=== PATIENT | female | born 1940 | race Caucasian/White ===

== ENCOUNTER → 2020-06-19 | Outpatient (CLI) | payer MEDICARE, OTHER ==
[2020-06-19 15:30] LABS: HCT 45.8 % (34.0-46.0); HGB 14.5 gm/dL (11.4-16.0); Hypochromasia Slight; MCH 30.1 pg (25.0-35.0); MCHC 31.7 g/dL (31.0-37.0); MCV 94.8 fL (80.0-100.0); Mean Platelet Volume 7.8; Platelet Count 295 k/uL (150-450); RBC 4.83 m/uL (3.80-5.40); RDW 13.4 % (11.5-15.5); WBC 7.5 k/uL (3.8-10.6)
[2020-06-19 15:39] LABS: Albumin 4.1 g/dL (3.5-5.0); Calcium 9.6 mg/dL (8.4-10.2); Total Bilirubin 0.5 mg/dL (0.2-1.3); Total Protein 6.8 g/dL (6.3-8.2)
[2020-06-19 15:44] LABS: Partial Thromboplastin Time 27.1 sec (22.0-30.0); Prothrombin Time 10.6 sec (9.0-12.0)
== END | disposition home or self-care (01) ==
LOC: LABPAT 13:35
PROVIDERS: ATTEND Orthopaedic Surgery
DX: Z01.818 Encounter for other preprocedural examination (principal); Z01.812 Encounter for preprocedural laboratory examination
CPT/HCPCS: 80053; 85027; 85610; 85730; 86850; 86900; 86901; 87070; 93005

== ENCOUNTER 2020-06-26 05:41 | Day surgery (SDC) | payer MEDICARE, OTHER ==
[2020-06-24 14:41] VITALS: BMI 36.8
[~2020-06-26 05:41] MED LIST: ACETAMINOPHEN TAB 500 MG TAB PO ONE; GABAPENTIN 300 MG CAP PO ONE; MELOXICAM 7.5 MG TAB PO ONE; TRANEXAMIC ACID 1,000 MG in SODIUM CHLORIDE 0.9% 100 ML IVPB ONE
[2020-06-26] MEDS ORDERED: ONDANSETRON 4 MG/2 ML VIAL ONE (05:48)
[2020-06-26] MEDS ORDERED: LIDOCAINE 1% (10MG/ML) FOR IV START INTRADERMA ONE (06:14)
[2020-06-26] MEDS: LACTATED RINGERS 1,000 ML IV SCH (06:15)
[2020-06-26] MEDS ORDERED: DEXAMETHASONE SOD PHOSPHATE 4 MG/ML 1 ML VIAL IV ONE (06:16)
[2020-06-26] MEDS ORDERED: LIDOCAINE 1% INJ 10MG/ML (20 ML MDV) ONE (06:52)
[2020-06-26] MEDS ORDERED: SODIUM CHLORIDE 0.9% IRRIG 1,000 ML BTL IRRIGATION ONE (06:52)
[2020-06-26] MEDS ORDERED: MIDAZOLAM 2 MG/2 ML VIAL ONE (06:52)
[2020-06-26] MEDS ORDERED: HEPARIN SODIUM,PORCINE 10,000 UNIT/ML 1 ML VIAL ONE (06:52)
[2020-06-26] MEDS ORDERED: PROPOFOL 10 MG/ML 20 ML VIAL IV ONE (06:52)
[2020-06-26] MEDS ORDERED: TRANEXAMIC ACID 1,000 MG/10 ML VIAL ONE (06:52)
[2020-06-26] MEDS ORDERED: PHENYLEPHRINE-0.9% NACL SYG 1 MG/10 ML SYRINGE ONE (06:52)
[2020-06-26] MEDS ORDERED: SODIUM CHLORIDE 0.9% 100 ML BAG ONE (06:52)
[2020-06-26] MEDS ORDERED: ceFAZolin 3,000 MG in SODIUM CHLORIDE 0.9% IRRIGATIO 3,000 ML IRRIGATION ONE (06:57)
[2020-06-26] MEDS ORDERED: MAGNESIUM HYDROXIDE 2,400 MG/10 ML CUP PO PRN (07:04)
[2020-06-26] MEDS ORDERED: HYDROcodone/APAP 5-325MG 1 EACH TAB PO PRN ×2 (07:04)
[2020-06-26] MEDS ORDERED: NALOXONE 0.4 MG/ML 1 ML VIAL IV PRN (07:04)
[2020-06-26] MEDS ORDERED: HYDROmorphone 0.5 MG/0.5 ML SYRINGE IVP PRN ×3 (07:04)
[2020-06-26] MEDS ORDERED: ONDANSETRON 4 MG/2 ML VIAL IVP PRN (07:04)
[2020-06-26] MEDS: ROPIVACAINE 246.25 MG, EPINEPHrine 0.5 MG, KETOROLAC 30 MG, cloNIDine HCL/PF 80 MCG, WA... MISCELLANE ONE ×10 (07:31→08:01)
[2020-06-26] MEDS ORDERED: LACTATED RINGERS 1,000 ML IV ONE ×2 (07:58→10:03)
--- NOTE | 2020-06-26 08:32 | P.OP ---
Date of Procedure: 06/26/20 Preoperative Diagnosis: Severe osteoarthritis left hip Postoperative Diagnosis: Severe osteoarthritis left hip Procedure(s) Performed: Left total hip arthroplasty with a direct anterior approach Implants: Doyle and nephew Polarstem size 2 standard Doyle & Nephew R3, 3 hole acetabular shell, 48 mm Doyle [employer] Nephew reflection 6.5 mm cancellus screw, 20 mm 2 Doyle [employer] Nephew R3, XLPE 20 acetabular liner Doyle [employer] Nephew Oxinium femoral head 32 m, -3 All components were press-fit. The articulation is Oxinium on polyethylene. Anesthesia: spinal Surgeon: Fredy De La O Food Beverage Supervisor #1: Natasha Saldaña Estimated Blood Loss (ml): 150 (69 mL returned with Cell Saver) Pathology: other (Femoral head) Condition: stable Disposition: PACU Indications for Procedure: After failure of conservative treatment we discussed the surgical and nonsurgical treatment options at length. Patient wishes to proceed with a total hip arthroplasty with a direct anterior approach. Complications specific to this procedure were discussed at length, including but not limited to infection, leg length discrepancy, dislocation, and nerve injury. Covid-19 was also discussed at length with the patient, and they are aware of the current policies and procedures. The patient was given the option of delaying surgery, but they elect to proceed knowing these risks. Patient is aware of all these complications and informed consent was obtained Operative Findings: The operative findings are consistent with severe osteoarthritis of the left hip Description of Procedure: Patient was seen and evaluated in the preoperative area, consent was reviewed, and the surgical site was marked with a skin marker. Patient was then brought to the operating room and given prophylactic antibiotics intravenously. 1 g of Tranexamic acid was also given. A spinal anesthetic was administered by the anesthesia department. The patient was then placed on the [place] table with the bony prominences well-padded. The hip area was then prepped and draped in usual sterile fashion. A universal timeout was then performed, which confirmed the patient's name, surgical site, ALLERGIES, and procedure being performed. Next the incision site was located at 1 cm distal and 1 cm lateral to the anterior superior iliac spine. The skin and subcutaneous tissues were sharply incised. Incision was carefully dissected down to the fascia overlying the tensor fascia alysha muscle. This fascia was then incised in line with the incision. Next, using blunt finger dissection, the tensor fascia alysha muscle was dissected off its investing fascia. The muscle was then carefully retracted laterally with a cobra retractor over the lateral neck of the femur. Next, the circumflex vessels were identified and cauterized using the AquaMantis device. The anterior hip capsule was then exposed. The capsule was then opened and an inverted T fashion. Cobra retractors were then placed intracapsularly. The proximal femur was then visualized. The femoral neck was then osteotomized appropriate level above the lesser trochanter. Small amount of traction was placed with the [place] table. A small wedge of bone was then removed from the remaining femoral head. Next, using a corkscrew femoral head was easily removed from the acetabulum. On gross visual inspection, the femoral head had complete loss of articular cartilage in multiple periarticular osteophytes. Attention was then turned to the acetabulum. the acetabulum was exposed and any remaining labrum was excised. Sequential reaming of the acetabulum was performed using fluoroscopic guidance. When the appropriate size was reached, a trial was then placed. The position and fit of the trial was checked with fluoroscopy. The trial was then removed. Then, using fluoroscopic guidance, the final implant was impacted at 20 of anteversion and 40 of abduction, and fully seated in the acetabulum. 2 screws were then placed in the acetabulum. Again fluoroscopy was used to check position of the screws. Next, the liner was then impacted, with a 20 elevated liner located in the anterior superior quadrant. Component locking was confirmed. Attention was then directed to the femur. With the aid of the [place] table, the femur was externally rotated to approximately 130, extended, and abducted under the opposite leg. A side hook was then placed under the proximal femur, and the side hook elevator was used to elevate the proximal femur. Retractors were then placed. A capsular release was performed, as well as a release of the conjoined tendon, which afforded excellent visualization of the proximal femur. Next, a box osteotome was used to lateralize the proximal femur. A basket hand weaver was then used to locate the femoral canal. Sequential broaching was then performed with appropriate size which afforded excellent fixation in the proximal femur. A trial was then placed with appropriate head and neck, and the hip was gently reduced with the aid of the [place] table. Fluoroscopy was then used to check position of the components, as well as to ensure equal leg lengths. The hip was then gently dislocated and the trials were then removed. Final implants were then impacted and the hip was again reduced. Final fluoroscopic x-rays confirmed that the components were in anatomic position, as well as equal leg lengths. The hip was also taken through range of motion, and found to be stable. The hip was then copiously irrigated with antibiotic solution with pulsatile lavage. The hip was then irrigated with Irrisept solution. The soft tissues were then injected with a ropivacaine solution, which consisted of 246.25 mg of ropivacaine, 0.5 mg of epinephrine, 30 mg of Toradol, 80 g of clonidine, and 48.45 mL of sterile water, for a total of 100 mL of fluid injected. A second dose of 1 g of Tranexamic acid was also given. the fascia was then closed with 2-0 strata fix suture. The subcutaneous tissue was closed with 3-0 Vicryl. The subcuticular tissue was closed with 3-0 strata fix suture. The skin was then closed with Dermabond glue and a sterile silver dressing. The patient was then transferred to the recovery room in stable condition. The preschool teacher's assistant JONI Ornelas was required due to the complexity of surgery, and the need for skilled surgical corsetier for positioning, draping, exposure, retraction, and closure of the wound.
--- NOTE | 2020-06-26 08:48 | FL ---
Fluoroscopy HISTORY: Anterior hip replacement 10 seconds fluoroscopy time supplied to the referring clinician. 1 intraoperative C-arm images docum ent the procedure. See dictated report from orthopedic surgery.
--- NOTE | 2020-06-26 08:49 | XR ---
Limited left hip HISTORY: Anterior hip replacement Single intraoperative C-arm image documents the procedure
--- NOTE | 2020-06-26 09:30 | XR ---
Limited left hip HISTORY: Status post left hip arthroplasty Single frontal view of the left hip Patient is status post left hip arthroplasty. There is anatomic alignment. Lucency is present in the soft tissues. IMPRESSION: Orthopedic follow-up.
[2020-06-26] MEDS: SODIUM CHLORIDE 0.9% 1,000 ML IV SCH ×2 (16:31→22:34)
--- NOTE | 2020-06-26 18:45 | P.CONS ---
History of Present Illness - Reason for Consult Consult date: 06/26/20 medical managemnt Requesting physician: Fredy De La O - Chief Complaint Left hip anterior arthroplasty, hypertension, chronic kidney disease, chron - History of Present Illness 79-year-old female one of Dr. Vasquez's patient with past medical history of hypertension and chronic kidney disease who is survival of intrauterine cancer post hysterectomy with acute kidney failure at the time few years ago ended up on hemodialysis for few months. Patient has been doing well has been off dialysis and taking only Norvasc for hypertension but remain in stage III chronic kidney disease. Patient had suffered from chronic arthritis of the left hip with significant [id number] for the last few years with failure to conservative management continue having pain and discomfort and limping. Patient was seen Dr. De La O and scheduled for left hip anterior approach arthroplasty which was done today successfully with no major complication patient is very stable hemodynamically sitting in a chair tonight no major complaint and pain is under control. Review of Systems CONSTITUTIONAL: Well-developed no acute respiratory distress. EYES: No icterus sclerae, no conjunctivitis. EARS, NOSE, MOUTH, THROAT, and FACE: No sore throat, lymphadenopathy, carotid bruits or deformity. RESPIRATORY: No SOB cough or wheezes. CARDIOVASCULAR: No CP, Palpitation, PND, Orthopnea, or angina. GASTROINTESTINAL: No Abd pain, Nausea or vomiting, no Diarrhea or constipation, No GI Bleed, no distention or masses. GENITOURINARY: Negative for Hematuria or UTI, no kidney stones. Chronic kidney disease INTEGUMENT/BREAST: Negative for any muscular injury with mild osteoarthritis.. HEMATOLOGIC/LYMPHATIC: Negative for bleed or purpura. Chronic anemia MUSCULOSKELTAL: Negative for Myalgia or arthralgia. Left total hip arthroplasty NEURLOGICAL: No LOC, Sz or syncope, blurred vision dizziness or abnormality.. BEHAVIORAL/PSYCH: Negative. ENDOCRINE: Negative. Past Medical History Past Medical History: Hypertension History of Any Multi-Drug Resistant Organisms: None Reported Past Surgical History: Cholecystectomy, Hysterectomy Additional Past Surgical History / Comment(s): collette cataract surgery Past Anesthesia/Blood Transfusion Reactions: No Reported Reaction Past Psychological History: No Psychological Hx Reported Smoking Status: Never smoker Past Alcohol Use History: Rare Past Drug Use History: None Reported - Past Family History Mother Family Medical History: No Reported History Medications and Allergies Home Medications Medication Instructions Recorded Confirmed Type amLODIPine BESYLATE 5 mg PO DAILY 06/24/20 06/26/20 History Allergies Allergy/AdvReac Type Severity Reaction Status Date / Time Iodine and Iodide Containing Allergy kidneys Verified 06/26/20 06:02 Produc failed Physical Exam Vitals: Vital Signs Temp Pulse Resp BP Pulse Ox 06/26/20 16:29 98.0 F 80 18 114/81 95 06/26/20 15:15 78 16 115/72 95 06/26/20 14:15 85 18 132/76 95 06/26/20 13:15 77 14 137/84 98 06/26/20 12:15 97 16 132/73 97 06/26/20 11:15 71 16 132/65 97 06/26/20 10:45 65 18 125/60 98 06/26/20 10:18 71 18 134/65 97 06/26/20 09:48 67 18 106/59 98 06/26/20 09:18 68 14 112/62 95 06/26/20 09:03 74 16 111/60 95 06/26/20 08:48 72 14 116/56 95 06/26/20 08:32 97.1 F L 76 16 112/56 97 06/26/20 06:02 98.2 F 83 16 141/95 93 L Intake and Output 06/26/20 06/26/20 06/26/20 06:59 14:59 22:59 Intake Total 1051 1800 200 Output Total 850 300 Balance 1051 950 -100 Intake: IV 1051 1800 Oral 200 Output: Urine 700 300 Estimated Blood Loss 150 Other: Weight 89.4 kg 89.4 kg 89.4 kg General Appearance: Alert, cooperative, no distress, appears stated age. Neck HEENT: Supple, no lymphadenopathy, no thyroid enlargement, no carotid bruits. Lungs: Clear to auscultation without crackles or wheezes no rhonchi, no deformity. Chest Wall: Chest wall normal expansion with deep inspiration no tenderness and no deformity was found on exam, no costochondral pain or discomfort. Heart: Regular rate and rhythm, S1, S2 normal, no murmur, rub or gallop. Back: Symmetric, no curvature, ROM normal, no CVA tenderness. Abdomen: Soft, non-tender, bowel sounds active all four quadrants, no masses, no organomegaly. Extremities: Extremities normal, atraumatic, no cyanosis or edema. Left hip incision looks fine with no hematoma induration bleeding no redness or warmness mild limitation still no major edema swelling no sign of deep venous thrombosis. Pulses: 2+ and symmetric. Skin: Skin color, texture, tugor normal, no rashes or lesions. Neurologic: Alert oriented x3 cranial nerves II through XII intact, no motor deficit, no abnormal balance or gait. Assessment and Plan Assessment: 1 left total hip arthroplasty: Anterior approach patient has done very well resume home meds, will start PTOT, control pain, keep watching patient hemodynamic status carefully no major complications so far. 2 hypertension: Remain on Norvasc 5 mg a day resume medication. 3 chronic kidney disease: Stage III, patient stable does not seen nephrology has been watch and managed by Dr. Vasquez for the last few years. 4 chronic anemia: Patient is on iron supplement regularly. 5 pain management: Post surgery patient is on oral hydrocodone and Tylenol as needed. 6 DVT prophylaxis: Patient will be on aspirin per protocol. 7 GI prophylaxis: Patient be on Pepcid 20 mg daily. CODE STATUS: Full code. Dr. De La O thank you very much for the consult if I can be any further help to please let me know.
[2020-06-26] MEDS ORDERED: SENNOSIDES-DOCUSATE SODIUM 1 EACH TAB PO SCH (21:00)
[2020-06-26] MEDS: ASPIRIN 325 MG TAB PO SCH (21:09)
[2020-06-27] MEDS: LACTATED RINGERS 1,000 ML IV SCH (05:03)
[2020-06-27 06:57] VITALS: BP 128/77; PULSE 76; RESP 16; TEMP 98
[2020-06-27 07:25] LABS: Basophils % (A) 0 %; Eosinophils % (A) 1 %; HCT 36.8 % (34.0-46.0); HGB 11.6 gm/dL (11.4-16.0); Hypochromasia Moderate; Lymphocytes # (A) 0.8 k/uL (1.0-4.8); Lymphocytes % (A) 10 %; MCH 30.4 pg (25.0-35.0); MCHC 31.4 g/dL (31.0-37.0); MCV 96.7 fL (80.0-100.0); Mean Platelet Volume 7.6; Monocytes # (A) 0.5 k/uL (0-1.0); Monocytes % (A) 6 %; Neutrophils # (A) 6.6 k/uL (1.3-7.7); Neutrophils % (A) 82 %; Platelet Count 220 k/uL (150-450); RDW 13.5 % (11.5-15.5)
[2020-06-27] MEDS ORDERED: HYDROcodone/APAP 7.5-325MG 1 EACH TAB PO PRN ×2 (08:17)
--- NOTE | 2020-06-27 08:21 | P.DS ---
Providers Expected date of discharge: 06/27/20 Attending physician: Fredy De La O Consults: 06/26/20 07:04 Consult Physician Routine Consulting Provider: Jean Aguirre Reason/Comments: medical management Do you want consulting provider notified?: Yes Primary care physician: Amy Vasquez - Discharge Diagnosis(es) (1) S/P total hip arthroplasty Current Visit: Yes Status: Acute (2) Osteoarthritis of left hip Current Visit: Yes Status: Acute Hospital Course: This is a 79-year-old female with known history of degenerative arthritis of the left hip. The patient presented for evaluation as an outpatient. After discussion and consideration patient elects to proceed with total hip arthroplasty. The patient is seen preoperatively by Dr. De La O and medically cleared for surgery by their primary care physician. Patient is admitted to [facility] on 06/26/2020 for total hip arthroplasty. The procedure is performed without complication or sequelae. The patient is doing well postoperatively. Labs and vital signs are stable on day of discharge. On day of discharge patient's hip incision is healing well. There is minimal erythema. There is no drainage noted at this time. There is minimal soft t issue swelling to the hip and thigh. Patient has full foot and ankle motion without difficulty or pain. Calf is soft and nontender to palpation. Neurovascular status to the left lower extremity is intact. Patient is discharged home in good condition. Opioid start talking form is reviewed and signed. Please see med rec for accurate list of home medications. Plan - Discharge Summary Discharge Rx Participant: No New Discharge Prescriptions: New Aspirin 325 mg PO BID #60 tab HYDROcodone/APAP 7.5-325MG [[place] 7.5-325] 1 - 2 tab PO Q6H PRN #32 tab PRN Reason: Pain Sennosides [Senokot] 2 tab PO DAILY PRN #60 tablet PRN Reason: Constipation No Action amLODIPine BESYLATE 5 mg PO DAILY Discharge Medication List amLODIPine BESYLATE 5 mg PO DAILY 06/24/20 [History] Aspirin 325 mg PO BID #60 tab 06/27/20 [Rx] HYDROcodone/APAP 7.5-325MG [[place] 7.5-325] 1 - 2 tab PO Q6H PRN #32 tab 06/27/20 [Rx] Sennosides [Senokot] 2 tab PO DAILY PRN #60 tablet 06/27/20 [Rx] Follow up Appointment(s)/Referral(s): Fredy De La O DO [Doctor of Osteopathic Medicine] - 2 Weeks Activity/Diet/Wound Care/Special Instructions: Weightbearing as tolerated with walker. Leave dressing intact. Dressing may be removed by home care nurse or by patient in 10 days. May shower with dressing on. Please take aspirin 325mg twice daily for 30 days to prevent blood clots. Recommend use of compression stockings daily until follow up to help prevent swelling and blood clots. May remove at night before sleeping. Please follow-up with [facility] in 2 weeks and call with any questions or concerns, . Discharge Disposition: HOME WITH HOME HEALTH SERVICES
[2020-06-27] MEDS ORDERED: amLODIPine 5 MG TAB PO SCH (09:00)
[2020-06-27] MEDS ORDERED: FAMOTIDINE 20 MG TAB PO SCH (09:00)
[2020-06-27] MEDS ORDERED: MELOXICAM 7.5 MG TAB PO SCH (09:00)
[2020-06-27] MEDS: ASPIRIN 325 MG TAB PO SCH (09:11)
--- NOTE | 2020-06-27 13:23 | P.PN ---
Subjective Progress Note Date: 06/27/20 79-year-old female one of Dr. Vasquez's patient with past medical history of hypertension and chronic kidney disease who is survival of intrauterine cancer post hysterectomy with acute kidney failure at the time few years ago ended up on hemodialysis for few months. Patient has been doing well has been off dialysis and taking only Norvasc for hypertension but remain in stage III chronic kidney disease. Patient had suffered from chronic arthritis of the left hip with significant [id number]-fiak for the last few years with failure to conservative management continue having pain and discomfort and limping. Patient was seen Dr. De La O and scheduled for left hip anterior approach arthroplasty which was done today successfully with no major complication patient is very stable hemodynamically sitting in a chair tonight no major complaint and pain is under control. 06/27: Patient is found sitting up in a chair. She has ambulated with a walker and is doing well. She has done well with physical therapy. Her discharge plan is to return home. She has been afebrile, heart rate 76, blood pressure 120/77, pulse ox 96% on room air. CBC is within normal limits. Her discharge plan is to return home and her daughter will be with her. Patient is cleared for medicine for discharge. No change in home medications. Patient will have follow-up with Dr. Amy Vasquez. Review of Systems CONSTITUTIONAL: Well-developed no acute respiratory distress. No fever, no c hills. EYES: No icterus sclerae, no conjunctivitis. EARS, NOSE, MOUTH, THROAT, and FACE: No sore throat, lymphadenopathy, carotid bruits or deformity. RESPIRATORY: No SOB cough or wheezes. CARDIOVASCULAR: No CP, Palpitation, PND, Orthopnea, or angina. GASTROINTESTINAL: No Abd pain, Nausea or vomiting, no Diarrhea or constipation, No GI Bleed, no distention or masses. GENITOURINARY: Negative for Hematuria or UTI, no kidney stones. Chronic kidney disease INTEGUMENT/BREAST: Negative for any muscular injury with mild osteoarthritis.. HEMATOLOGIC/LYMPHATIC: Negative for bleed or purpura. Chronic anemia MUSCULOSKELTAL: Negative for Myalgia or arthralgia. Left total hip arthroplasty NEURLOGICAL: No LOC, Sz or syncope, blurred vision dizziness or abnormality.. BEHAVIORAL/PSYCH: Negative. ENDOCRINE: Negative. PHYSICAL EXAMINATION General Appearance: Alert, cooperative, no distress, appears stated age. Sitting up in chair. Neck HEENT: Supple, no lymphadenopathy, no thyroid enlargement, no carotid bruits. Lungs: Clear to auscultation without crackles or wheezes no rhonchi, no deformity. Chest Wall: Chest wall normal expansion with deep inspiration no tenderness and no deformity was found on exam, no costochondral pain or discomfort. Heart: Regular rate and rhythm, S1, S2 normal, no murmur, rub or gallop. Back: Symmetric, no curvature, ROM normal, no CVA tenderness. Abdomen: Soft, non-tender, bowel sounds active all four quadrants, no masses, no organomegaly. Extremities: Extremities normal, atraumatic, no cyanosis or edema. Small dressing in place to the left hip. No breakthrough leading or drainage. Pulses: 2+ and symmetric. Skin: Skin color, texture, tugor normal, no rashes or lesions. Neurologic: Alert oriented x3 cranial nerves II through XII intact, no motor deficit, no abnormal balance or gait. ASSESSMENT AND PLAN 1 left total hip arthroplasty, postop day #1: Anterior approach patient has done very well resume home meds, will start PTOT, control pain, keep watching patient hemodynamic status carefully no major complications so far. 2 hypertension: Remain on Norvasc 5 mg a day resume medication. 3 chronic kidney disease: Stage III, patient stable does not seen nephrology has been watch and managed by Dr. Vasquez for the last few years. 4 chronic anemia: Patient is on iron supplement regularly. 5 pain management: Post surgery patient is on oral hydrocodone and Tylenol as needed. 6 DVT prophylaxis: Patient will be on aspirin per protocol. 7 GI prophylaxis: Patient be on Pepcid 20 mg daily. CODE STATUS: Full code. DISCHARGE PLAN Home with [facility] Impression and plan of care have been directed as dictated by the signing physician. Kasey Worley nurse practitioner acting as scribe for signing physician. Objective - Vital Signs Vital signs: Vital Signs Temp 98.0 F 06/27/20 06:56 Pulse 76 06/27/20 06:56 Resp 16 06/27/20 06:56 BP 128/77 06/27/20 06:56 Pulse Ox 96 06/27/20 06:56 Intake & Output 06/26/20 06/27/20 06/27/20 18:59 06:59 18:59 Intake Total 1999 Output Total 1150 Balance 850 Weight 89.4 kg Intake: IV 1800 Oral 200 Output: Urine 1000 Estimated Blood Loss 150 Other: Voiding Method Toilet # Voids 1 - Labs CBC & Chem 7: 06/27/20 06:57 Labs: Abnormal Lab Results - Last 24 Hours (Table) 06/27/20 Range/Units 06:57 Lymphocytes # 0.8 L (1.0-4.8) k/uL
== END 2020-06-27 10:47 | disposition home health service (06) ==
LOC: OR 05:41 → 4SSUR 16:14 → OR 06-27 10:47
PROVIDERS: ATTEND Orthopaedic Surgery
DX: M16.0 Bilateral primary osteoarthritis of hip (principal); M25.752 Osteophyte, left hip; I12.9 Hypertensive chronic kidney disease with stage 1 through stage 4 chronic kidney disease, or unspecified chronic kidney disease; N18.30 Chronic kidney disease, stage 3 unspecified; D64.9 Anemia, unspecified; Z79.899 Other long term (current) drug therapy; E78.5 Hyperlipidemia, unspecified; Z91.041 Radiographic dye allergy status; Z79.82 Long term (current) use of aspirin; Z79.1 Long term (current) use of non-steroidal anti-inflammatories (NSAID); Z99.2 Dependence on renal dialysis; Z85.42 Personal history of malignant neoplasm of other parts of uterus; Z90.710 Acquired absence of both cervix and uterus; Z90.49 Acquired absence of other specified parts of digestive tract; Z98.41 Cataract extraction status, right eye; Z97.3 Presence of spectacles and contact lenses; Z98.42 Cataract extraction status, left eye; Z83.3 Family history of diabetes mellitus; Z82.49 Family history of ischemic heart disease and other diseases of the circulatory system
CPT/HCPCS: 97110; 97161; 97535; 97166; 86891; 88305; 85025; 88311; 73501; 27130; P9022; C1776; J2250; J0171; J1644; J1100; J0690 ×2; J2405; J2001; J1885; J2795; J2370; J2704; J0735; 86850; 86900; 86901

== ENCOUNTER → 2022-03-16 | Outpatient (CLI) | payer MEDICARE, OTHER ==
[2022-03-16 13:16] LABS: INR 1.1 (<1.2); Partial Thromboplastin Time 27.7 sec (22.0-30.0); Prothrombin Time 11.5 sec (9.0-12.0)
[2022-03-16 18:19] LABS: Appearance,Urine Cloudy (Clear); Bilirubin,Urine Negative (Negative); Blood,Urine Negative (Negative); Color,Urine Yellow (Yellow); Ketones,Urine Negative (Negative); Nitrite,Urine Negative (Negative); PH, Urine 7.5 (5.0-8.0); Specific Gravity,Urine 1.011 (1.001-1.030); Urobilinogen,Urine 0.2 (0.2,1.0)
[2022-03-16 19:06] LABS: Bacteria,Urine None Seen /HPF (None Seen)
[2022-03-16 19:19] LABS: African American GFR (CKD) 35.5 (60.0-200.0); Albumin/Globulin Ratio 1.58 (1.60-3.17); Anion Gap 12.5 mmol/L (10.00-18.00); BUN/Creat Ratio 15.23 Ratio (12.00-20.00); Blood Urea Nitrogen 23.6 mg/dL (9.0-27.0); Calcium 9.4 mg/dL (8.7-10.3); Carbon Dioxide 22.3 mmol/L (20.0-27.5); Globulin 2.6 g/dL (1.6-3.3); Non-African American GFR(CKD) 30.7 (60.0-200.0); Potassium 4.6 mmol/L (3.5-5.5); Total Bilirubin 0.4 mg/dL (0.30-1.20); Total Protein 6.6 g/dL (6.2-8.2)
[2022-03-16 19:22] LABS: HCT 46.1 % (37.2-46.3); HGB 14.4 g/dL (12.0-15.0); MCH 28.7 pg (27.0-32.0); MCHC 31.2 g/dL (32.0-37.0); Mean Platelet Volume 10.9 fL (9.5-12.2); NRBC Per 100 WBC 0 /100 WBCS (0.0-0.0); Platelet Count 296 X 10*3/uL (140-440); RBC 5.01 X 10*6/uL (4.10-5.20); RDW 13.4 % (11.5-14.5); WBC 7.27 X 10*3/uL (4.50-10.00)
== END | disposition home or self-care (01) ==
LOC: LABPAT 11:20
PROVIDERS: ATTEND Orthopaedic Surgery
DX: Z01.812 Encounter for preprocedural laboratory examination (principal); M16.11 Unilateral primary osteoarthritis, right hip
CPT/HCPCS: 80053; 81001; 85027; 85610; 85730; 87070; 93005

== ENCOUNTER 2022-03-22 05:43 | Day surgery (SDC) | payer MEDICARE, OTHER ==
[~2022-03-22 05:43] MED LIST changes: -ACETAMINOPHEN TAB 500 MG TAB PO ONE; +ACETAMINOPHEN TAB 500 MG TAB PO PRN; -GABAPENTIN 300 MG CAP PO ONE; +GABAPENTIN 300 MG CAP PO PRN; -MELOXICAM 7.5 MG TAB PO ONE; +MELOXICAM 7.5 MG TAB PO PRN; -TRANEXAMIC ACID 1,000 MG in SODIUM CHLORIDE 0.9% 100 ML IVPB ONE; +TRANEXAMIC ACID IN NACL,ISO-OS 1,000 MG in SALINE 1 100ML.BAG IVPB PRN; +VANCOMYCIN 1,250 MG in SODIUM CHLORIDE 0.9% 250 ML IVPB PRN
[2022-03-22] MEDS ORDERED: ONDANSETRON 4 MG/2 ML VIAL IVP ONE (05:51)
[2022-03-22] MEDS ORDERED: LIDOCAINE 1% (10MG/ML) FOR IV START INTRADERMA PRN (05:51)
[2022-03-22] MEDS: LACTATED RINGERS 1,000 ML IV SCH (06:28)
[2022-03-22] MEDS ORDERED: HYDROmorphone 0.5 MG/0.5 ML SYRINGE IVP PRN ×4 (07:00→12:54)
[2022-03-22] MEDS ORDERED: ceFAZolin 1,000 MG in SODIUM CHLORIDE 0.9% 1,000 ML IRRIGATION ONE (07:02)
[2022-03-22] MEDS ORDERED: ROPIVACAINE 5 MG/ML 30 ML VIAL MISCELLANE ONE ×2 (07:28→08:05)
--- NOTE | 2022-03-22 08:16 | P.OP ---
Date of Procedure: 03/22/22 Preoperative Diagnosis: Severe osteoarthritis right hip Postoperative Diagnosis: Severe osteoarthritis right hip Procedure(s) Performed: Right total hip arthroplasty with a direct anterior approach Implants: [employer] Polarstem standard size 3 [employer] R3, 3 hole hemispherical acetabular shell, 48 mm [employer] Reflection 6.5 mm cancellus screw, 20 mm 2 [employer] R3, XLPE 20 acetabular liner [employer]hew Oxinium femoral head 32 m, -3 All components were press-fit. The articulation is Oxinium on polyethylene. Anesthesia: GETA Surgeon: Fredy De La O Supervisor Water Softener Service #1: Leslie Tadeo Estimated Blood Loss (ml): 300 Pathology: other (Femoral head) Condition: stable Disposition: PACU Indications for Procedure: After failure of conservative treatment we discussed the surgical and nonsurgica l treatment options at length. Patient wishes to proceed with a total hip arthroplasty with a direct anterior approach. Complications specific to this procedure were discussed at length, including but not limited to infection, leg length discrepancy, dislocation, nerve injury, and fracture. Covid-19 was also discussed at length with the patient, and they are aware of the current policies and procedures. The patient was given the option of delaying surgery, but they elect to proceed knowing these risks. Patient is aware of all these complications and informed consent was obtained Operative Findings: The operative findings are consistent with severe osteoarthritis of the right hip Description of Procedure: Patient was seen and evaluated in the preoperative area and the consent was reviewed. The operative site was marked with a skin marker. The patient was then brought to the operating room and given preoperative antibiotics intravenously. 1 g of Tranexamic acid was also given intravenously. A general anesthetic was administered by the anesthesia department. The patient was then placed on the [place] table with the bony prominences well-padded. The hip area was then prepped with a ChloraPrep solution and draped in the usual sterile fashion. A universal timeout was then performed, which confirmed the patient's name, surgical site, ALLERGIES, and procedure being performed on the consent. Next the incision site was located at 1 cm distal and 2 cm lateral to the anterior superior iliac spine. The skin and subcutaneous tissues were sharply incised. Incision was carefully dissected down to the fascia overlying the tensor fascia alysha muscle. This fascia was then incised in line with the incision. Care was taken to stay laterally in order to avoid injuring the lateral femoral cutaneous nerve. Next, using blunt finger dissection, the tensor fascia alysha muscle was dissected off its investing fascia. The muscle was then carefully retracted laterally with a cobra retractor over the lateral neck of the femur. Next, the circumflex vessels were identified and cauterized using the AquaMantis device. The anterior hip capsule was then exposed. The capsule was then opened and an inverted T fashion. Cobra retractors were then placed intracapsularly. The retractors were maintained intracapsular throughout the procedure. The proximal femur was then visualized. Fluoroscopic x-rays were then taken in order to evaluate the preoperative leg lengths. A small amount of traction was placed on the leg. The femoral neck was then osteotomized at the appropriate level above the lesser trochanter. A small wedge of bone was then removed from the remaining femoral head. Next, using a corkscrew the femoral head was removed from the acetabulum. On gross visual inspection, the femoral head had complete loss of articular cartilage and multiple periarticular osteophytes. The femoral head was then measured. Attention was then turned to the acetabulum. The acetabulum was exposed and any remaining labrum was excised. Sequential reaming of the acetabulum was performed using fluoroscopic guidance until there was a good bed of bleeding cancellus bone. When the appropriate size was reached, a trial was then placed. The position and fit of the trial was checked with fluoroscopy. The trial was then removed. Then, using fluoroscopic guidance, the final implant was impacted at 20 of anteversion and 40 of abduction, and fully seated in the acetabulum. 2 screws were then placed in the acetabulum. Again fluoroscopy was used to check position of the screws. Next, the liner was then impacted, with a 20 elevated liner located in the anterior superior quadrant. Component locking was confirmed. Attention was then directed to the femur. With the aid of the [place] table, the femur was externally rotated to approximately 130, extended, and adducted under the opposite leg. A side hook was then placed under the proximal femur, and the side hook elevator was used to elevate the proximal femur while releasing the capsule. Retractors were then placed. A capsular release was performed, as well as a release of the conjoined tendon, which afforded excellent visualization of the proximal femur. Next, a box osteotome was used to lateralize the proximal femur. A baggage handler was then used to locate the femoral canal. Sequential broaching was then performed with appropriate size which afforded excellent fixation in the proximal femur. A trial was then placed with appropriate head and neck, and the hip was gently reduced with the aid of the [place] table. Fluoroscopy was then used to check position of the components, as well as to ensure equal leg lengths. The hip was then gently di slocated and the trials were then removed. Final implants were then impacted and the hip was again reduced. Final fluoroscopic x-rays confirmed that the components were in anatomic position, as well as equal leg lengths. The hip was also taken through range of motion, and found to be stable. The hip was then copiously irrigated with antibiotic solution with pulsatile lavage. The hip was then irrigated with Irrisept solution. The soft tissues were then injected with a ropivacaine solution. A second dose of 1 g of Tranexamic acid was also given intravenously. The fascia was then closed with 2-0 strata fix suture. The subcutaneous tissue was closed with 3-0 Vicryl. The subcuticular tissue was closed with 3-0 strata fix suture. The skin was then closed with Exofin skin glue. After the glue and dried, and Optifoam silver impregnated dressing was applied. The patient was then transferred to the recovery room in stable condition. The commercial assistant JONI Harp was required due to the complexity of surgery, and the need for skilled surgical instrument maker for positioning, draping, exposure, retraction, and closure of the wound.
[2022-03-22] MEDS ORDERED: HYDROmorphone 0.5 MG/0.5 ML SYRINGE IVP ONE ×2 (08:59→09:24)
--- NOTE | 2022-03-22 09:29 | FL ---
EXAMINATION TYPE: FL guidance operating room, XR Hip Limited RT DATE OF EXAM: 03/22/2022 CLINICAL HISTORY: Right hip pain and osteoarthritis. TECHNIQUE: Fluoroscopy. Limited intraoperative views right hip. COMPARISON: None. FINDINGS: Fluoroscopic guidance was provided during right hip replacement procedure performed by Dr. De La O. A total of 21 seconds of fluoroscopic time was utilized during the procedure and 3 spot i mages was acquired. Intraoperative images obtained show advanced narrowing and spurring with eventual metallic prosthetic hip replacement. Position appears satisfactory on the intraoperative frontal view. IMPRESSION: As Above.
[2022-03-22] MEDS ORDERED: LACTATED RINGERS 1,000 ML IV ONE (09:44)
--- NOTE | 2022-03-22 10:41 | XR ---
EXAMINATION TYPE: XR Hip Limited RT DATE OF EXAM: 03/22/2022 Comparison: None Clinical History: 81-year-old female Status post hip surgery, assess surgical alignment Findings: Image shows placement of right hip total arthroplasty. Both acetabular cup and femoral stem component s of the prosthesis are well seated without periprosthetic fracture. Alignment grossly anatomic. Scat tered soft tissue air related to recent operation. Impression: Uncomplicated postoperative appearance right hip total arthroplasty.
[2022-03-22] MEDS ORDERED: HYDROcodone/APAP 5-325MG 1 EACH TAB ONE (11:48)
[2022-03-22] MEDS ORDERED: HYDROcodone/APAP 7.5-325MG 1 EACH TAB ONE (11:52)
[2022-03-22] MEDS ORDERED: HYDROcodone/APAP 7.5-325MG 1 EACH TAB PO ONE (11:53)
[2022-03-22] MEDS ORDERED: NALOXONE 0.4 MG/ML 1 ML VIAL IV PRN (12:54)
[2022-03-22] MEDS ORDERED: HYDROcodone/APAP 5-325MG 1 EACH TAB PO PRN (12:54)
[2022-03-22] MEDS ORDERED: hydrOXYzine pamoate 25 MG CAP PO PRN (12:54)
[2022-03-22] MEDS ORDERED: ONDANSETRON 4 MG/2 ML VIAL IVP PRN (12:54)
[2022-03-22] MEDS: HYDROcodone/APAP 5-325MG 1 EACH TAB PO PRN (18:29)
[2022-03-22] MEDS: ASPIRIN 325 MG TAB PO SCH (20:33)
[2022-03-22] MEDS ORDERED: SENNOSIDES-DOCUSATE SODIUM 1 EACH TAB PO SCH (21:00)
[2022-03-23] MEDS: HYDROcodone/APAP 5-325MG 1 EACH TAB PO PRN ×2 (02:18→11:20)
[2022-03-23 03:21] VITALS: RESP 18
[2022-03-23] MEDS: LACTATED RINGERS 1,000 ML IV SCH (05:25)
[2022-03-23 07:28] VITALS: BP 113/76; PULSE 92
[2022-03-23] MEDS ORDERED: amLODIPine 5 MG TAB PO SCH (09:00)
[2022-03-23] MEDS: ASPIRIN 325 MG TAB PO SCH (09:02)
[2022-03-23 09:37] VITALS: TEMP 98
[2022-03-23 11:10] LABS: Basophils % (A) 0 %; Eosinophils % (A) 0 %; HCT 40.9 % (34.0-46.0); HGB 12.7 gm/dL (11.4-16.0); Hypochromasia Slight; Lymphocytes # (A) 0.4 k/uL (1.0-4.8); Lymphocytes % (A) 4 %; MCH 29.2 pg (25.0-35.0); MCV 94.4 fL (80.0-100.0); Mean Platelet Volume 7.5; Monocytes # (A) 0.7 k/uL (0-1.0); Monocytes % (A) 7 %; Neutrophils # (A) 9.8 k/uL (1.3-7.7); Neutrophils % (A) 89 %; Platelet Count 269 k/uL (150-450); RBC 4.34 m/uL (3.80-5.40); RDW 13.6 % (11.5-15.5)
[2022-03-23 11:24] LABS: African American GFR (CKD) 35 (>60 ml/min/1.73 sqM); Anion Gap 7 mmol/L; Blood Urea Nitrogen 23 mg/dL (7-17); Calcium 8.3 mg/dL (8.4-10.2); Carbon Dioxide 22 mmol/L (22-30); Chloride 104 mmol/L (98-107); Glucose 113 mg/dL (74-99); Non-African American GFR(CKD) 30 (>60 ml/min/1.73 sqM); Potassium 4.3 mmol/L (3.5-5.1); Sodium 133 mmol/L (137-145)
--- NOTE | 2022-03-23 11:30 | P.DS ---
Providers Expected date of discharge: 03/23/22 Attending physician: Fredy De La O Consults: 03/22/22 12:54 Consult Physician Routine Consulting Provider: Lisseth Park Consult Reason/Comments: medical management Do you want consulting provider notified?: Yes Primary care physician: Amy Vasquez [facility] Course: This is an 81-year-old female who has been followed in our office by Dr. De La O for continued complaints of right hip pain due to right hip osteoarthritis. Treatment options were discussed, and patient elected to undergo a right total hip arthroplasty. Patient was seen pre-operatively by Dr. Amy Vasquez and cleared for surgery. Patient underwent a direct anterior right total hip arthroplasty on 03/22/22. The procedure was performed without complication or sequelae. The patient is doing fairly well postoperatively. Vital signs and labs are stable on postoperative day #1. Patient was examined bedside today. Patient states she is overall doing very well and the pain in her right hip is well-controlled. She has been ambulating with a walker with minimal assistance. She is currently up to the bedside chair. She has worked with physical therapy this morning and received their clearance for discharge home. She is tolerating her diet well. She is voiding without issue. Patient is comfortable being discharged home today. Patient denies chest pain, shortness of breath, nausea, vomiting, fevers, chills. On examination, the patient is sitting up in the bedside chair in no apparent distress. She is alert and orientated 3. On inspection of the right hip, there is a clean, dry, intact surgical dressing in place. There is no bleeding or drainage the dressing. Patient has good strength and ROM of the right ankle and toes. Motor and sensory function is intact of the right lower extremity. The dorsalis pedis pulse is easily palpable, the right lower extremity is warm and well perfused with brisk capillary refill. Calf is soft and non-tender to palpation. Patient is discharged home with home health in good condition, pending medical clearance. Patient will follow-up with Dr. De La O in the office in 2 weeks. Please see med rec for accurate list of discharge medication. Plan - Discharge Summary Discharge Rx Participant: No New Discharge Prescriptions: New Celecoxib [CeleBREX] 200 mg PO DAILY #30 cap HYDROcodone/APAP 7.5-325MG [[place] 7.5-325] 1 - 2 tab PO Q6HR PRN 7 Days #32 tab PRN Reason: Pain Sennosides-Docusate Sodium [Senokot-S] 2 tab PO HS PRN #30 tablet PRN Reason: Constipation Ondansetron Odt [Zofran Odt] 4 mg PO Q8HR PRN #14 tab PRN Reason: Nausea Aspirin 325 mg PO DAILY 30 Days #60 tab No Action amLODIPine BESYLATE 5 mg PO DAILY Ibuprofen [Advil] 200 - 400 mg PO Q6HR PRN PRN Reason: Pain Discharge Medication List amLODIPine BESYLATE 5 mg PO DAILY 06/24/20 [History] Ibuprofen [Advil] 200 - 400 mg PO Q6HR PRN 03/17/22 [History] Aspirin 325 mg PO DAILY 30 Days #60 tab 03/22/22 [Rx] Celecoxib [CeleBREX] 200 mg PO DAILY #30 cap 03/22/22 [Rx] HYDROcodone/APAP 7.5-325MG [[place] 7.5-325] 1 - 2 tab PO Q6HR PRN 7 Days #32 tab 03/22/22 [Rx] Ondansetron Odt [Zofran Odt] 4 mg PO Q8HR PRN #14 tab 03/22/22 [Rx] Sennosides-Docusate Sodium [Senokot-S] 2 tab PO HS PRN #30 tablet 03/22/22 [Rx] Follow up Appointment(s)/Referral(s): [facility], [NON-STAFF] - As Needed Amy Vasquez MD [Primary Care Provider] - 1 Week Fredy De La O DO [Doctor of Osteopathic Medicine] - 04/07/22 1:00 pm (KEEP APPOINTMENT ALREADY SCHEDULED) Patient Instructions/Handouts: *Surgery [facility] - (Anesthesia) Discharge Ins tructions Outpatient Surgery, How to Use an Incentive Spirometer (DC), Anterior Hip Replacement (DC) Activity/Diet/Wound Care/Special Instructions: Weight bear to tolerance on operative extremity with a walker. Keep operative dressing intact for 7 days. May shower over dressing. Take pain medications as needed. Take aspirin 325mg BID x 4 weeks for blood clot prevention. Follow-up in the office in [address] De La O. Call the office with any questions or concerns, Discharge Disposition: HOME WITH HOME HEALTH SERVICES
--- NOTE | 2022-03-23 16:41 | P.CONS ---
History of Present Illness - Reason for Consult Consult date: 03/23/22 - History of Present Illness This is a pleasant 81-year-old female with past medical history significant for uterine cancer, hypertension, osteoarthritis. Patient presents for planned right hip total arthroplasty secondary to osteoarthritis with Dr. De La O. She is postoperative day #1. Patient is evaluated on the medical floor and doing well. She reports right hip pain a 8/10 while ambulating at rest she reports no pain. Denies parasthesias. She has no shortness of breath, no chest pain. She is afebrile. She is tolerating diet, passing gas. No BM yet. She will be discharged today with home physical therapy. She continues on home dose of amlodipine blood pressure 113/76. She is instructed to monitor blood pressure at home. She will be discharged today on norco for pain management and discussed using stool soft eners. Labs today show a creatinine level of 1.58 upon review her preoperative creatinine was 1.6 on 03/16/2022 this is most likely chronic. REVIEW OF SYSTEMS: CONSTITUTIONAL: No fever, no malaise, no fatigue. HEENT: No recent visual problems or hearing problems. Denied any sore throat. CARDIOVASCULAR: No chest pain, orthopnea, PND, no palpitations, no syncope. PULMONARY: No shortness of breath, no cough, no hemoptysis. GASTROINTESTINAL: No diarrhea, no nausea, no vomiting, no abdominal pain. Passing gas, no BM. NEUROLOGICAL: No headaches, no weakness, no numbness. HEMATOLOGICAL: Denies any bleeding or petechiae. GENITOURINARY: Denies any burning micturition, frequency, or urgency. MUSCULOSKELETAL/RHEUMATOLOGICAL: Rights right hip pain rated 8/10. ENDOCRINE: Denies any polyuria or polydipsia. The rest of the 14-point review of systems is negative. PHYSICAL EXAMINATION: GENERAL: The patient is alert and oriented x3, not in any acute distress. Well developed, well nourished. HEENT: Pupils are round and equally reacting to light. EOMI. No scleral icterus. No conjunctival pallor. Normocephalic, atraumatic. No pharyngeal erythema. No thyromegaly. CARDIOVASCULAR: S1 and S2 present. No murmurs, rubs, or gallops. PULMONARY: Chest is clear to auscultation, no wheezing or crackles. ABDOMEN: Soft, nontender, nondistended, normoactive bowel sounds. No palpable organomegaly. MUSCULOSKELETAL: No joint swelling or deformity. EXTREMITIES: No cyanosis, clubbing, or pedal edema. Post surgical right hip. NEUROLOGICAL: Gross neurological examination did not reveal any focal deficits. SKIN: No rashes. Assessment and plan Assessment Status post right hip total arthroplasty History hypertension currently normotensive History of uterine cancer Elevated creatinine appears chronic Hyponatremia, possible hypovolemic GI Prophylaxis DVT Prophylaxis: As per primary Full Code Plan Recommend to continue amlodipine on DC Follow up with PCP in 1-2 days Recommend to repeat BMP outpatient Increase oral intake Continue with bowel regimen while using narcotics Continue with pepcid for GI prophylaxis Discussed creatinine and follow up recommendations with patients daughter on the phone Thank you for this consultation The impression and plan of care has been dictated by Natacha Odell Nurse Practitioner as directed. Dr. Oliver MD I have performed a history and physical examination and medical decision making of this patient, discussed the same with the dictator, and agree with the dictators assessment and plan as written, documented as a scribe. Based on total visit time, I have performed more than 50% of this visit. Past Medical History Past Medical History: Cancer, Hypertension, Osteoarthritis (OA) Additional Past Medical History / Comment(s): hx uterine cancer, past hx. of kidney failure related to contrast dye-brief dialysis, no further problems History of Any Multi-Drug Resistant Organisms: None Reported Past Surgical History: Cholecystectomy, Hysterectomy, Joint Replacement Additional Past Surgical History / Comment(s): [place] cataract surgery, left hip replaced, right LINETTE (03/22/22) Past Anesthesia/Blood Transfusion Reactions: No Reported Reaction Past Psychological History: No Psychological Hx Reported Smoking Status: Never smoker Past Alcohol Use History: Rare Past Drug Use History: None Reported - Past Family History Mother Family Medical History: No Reported History Medications and Allergies Home Medications Medication Instructions Recorded Confirmed Type amLODIPine BESYLATE 5 mg PO DAILY 06/24/20 03/22/22 History Ibuprofen [Advil] 200 - 400 mg PO Q6HR PRN 03/17/22 03/22/22 History Aspirin 325 mg PO DAILY 30 Days #60 tab 03/22/22 Rx Celecoxib [CeleBREX] 200 mg PO DAILY #30 cap 03/22/22 Rx HYDROcodone/APAP 7.5-325MG [[place] 1 - 2 tab PO Q6HR PRN 7 Days #32 03/22/22 Rx 7.5-325] tab Ondansetron Odt [Zofran Odt] 4 mg PO Q8HR PRN #14 tab 03/22/22 Rx Sennosides-Docusate Sodium 2 tab PO HS PRN #30 tablet 03/22/22 Rx [Senokot-S] Allergies Allergy/AdvReac Type Severity Reaction Status Date / Time Iodinated Contrast Media Allergy caused Verified 03/22/22 06:04 kidney failure Iodine and Iodide Containing Allergy kidneys Verified 03/22/22 06:04 Produc failed Physical Exam Vitals: Vital Signs Temp Pulse Pulse Resp BP BP Pulse Ox 03/23/22 08:00 18 03/23/22 07:27 99.8 F H 92 18 113/76 93 L 03/23/22 02:15 97.6 F 83 18 122/84 97 03/22/22 20:00 97.6 F 96 16 93 L 03/22/22 14:57 97.1 F L 03/22/22 14:37 84 18 127/83 92 L 03/22/22 12:55 82 18 128/88 93 L 03/22/22 12:16 94 L 03/22/22 12:15 80 18 109/75 89 L 03/22/22 11:55 87 18 127/82 91 L 03/22/22 11:20 80 18 127/86 93 L 03/22/22 11:13 85 142/78 03/22/22 11:00 82 18 151/96 96 03/22/22 10:45 85 18 142/78 94 L 03/22/22 10:30 79 12 141/74 94 L 03/22/22 10:15 78 18 147/78 91 L 03/22/22 10:00 76 18 174/82 97 03/22/22 09:45 76 18 164/71 94 L 03/22/22 09:30 78 16 157/78 96 Intake and Output 03/22/22 03/23/22 03/23/22 22:59 06:59 14:59 Other: Voiding Method Toilet Toilet # Voids 1 1 Results CBC & Chem 7: 03/23/22 10:31 03/23/22 10:31 Assessment and Plan Time with Patient: Less than 30
== END 2022-03-23 11:53 | disposition home health service (06) ==
LOC: OR 05:43 → 4SSUR 13:38 → OR 14:05 → 4SSUR 14:05 → OR 03-23 11:53
PROVIDERS: ATTEND Orthopaedic Surgery
DX: M16.11 Unilateral primary osteoarthritis, right hip (principal); E78.5 Hyperlipidemia, unspecified; I12.9 Hypertensive chronic kidney disease with stage 1 through stage 4 chronic kidney disease, or unspecified chronic kidney disease; N18.4 Chronic kidney disease, stage 4 (severe); Z99.2 Dependence on renal dialysis; Z85.42 Personal history of malignant neoplasm of other parts of uterus; E87.1 Hypo-osmolality and hyponatremia; Z97.3 Presence of spectacles and contact lenses; Z98.890 Other specified postprocedural states; Z90.710 Acquired absence of both cervix and uterus; Z98.49 Cataract extraction status, unspecified eye; Z83.3 Family history of diabetes mellitus; Z82.49 Family history of ischemic heart disease and other diseases of the circulatory system; Z79.1 Long term (current) use of non-steroidal anti-inflammatories (NSAID); Z79.891 Long term (current) use of opiate analgesic; Z79.899 Other long term (current) drug therapy; Z90.49 Acquired absence of other specified parts of digestive tract; Z91.041 Radiographic dye allergy status
CPT/HCPCS: 97116; 97161; 97165; 80048; 85025; 73501; 27130; C1776; J3370; J0690 ×2; J2405; J2795; J1170; J1790; 86850; 86900; 86901